=== PATIENT | female | born 1955 | race Caucasian/White ===

== ENCOUNTER → 2017-01-17 | Outpatient (CLI) | payer MEDICARE, OTHER ==
--- NOTE | 2017-01-20 13:34 | RAD ---
EXAM: Bilateral digital screening mammogram with 3D tomosynthesis. HISTORY: 61-year-old female presents for screening mammography. TECHNIQUE: Full field digital craniocaudal and mediolateral oblique 2D and 3D tomosynthesis images of both breasts were obtained. Computer aided detection was applied. COMPARISON: 03/26/2013 and 03/17/2013 FINDINGS: Breast parenchymal density: Level A - Mostly fat. There is nodularity within the 11:00 subareolar aspect of the right breast, increased in conspicuity compared to the prior studies. There is a biopsy clip within the 8:00 position of the right breast. There are decreased calcifications in the region of the biopsy clip compared to the prior studies, consistent with interval biopsy. There are clustered constipations within the anterior left breast, increased in conspicuity compared to the prior study. There is no architectural distortion within either breast. IMPRESSION: BI-RADS Category 0: Needs additional imaging. Further evaluation with spot compression views of nodular within the subareolar aspect of the right breast and magnification views of the mitral calcification is within the anterior left breast is recommended. Sonographic imaging may also be performed if deemed clinically indicated based on additional imaging findings.. The patient will be contacted return for additional imaging. Note is made that dense breast parenchyma limits the sensitivity of mammography. Mammography is a sensitive method for finding small breast cancers, but it does not detect them all and is not a substitute for careful clinical examination. A negative mammogram does not negate a clinically suspicious finding and should not result in delay in biopsying a clinically suspicious abnormality. "Our facility is accredited by the [employer] Mammography [employer]."
== END | disposition home or self-care (01) ==
LOC: MAMMO 12:16
PROVIDERS: ATTEND Family Medicine
DX: Z12.31 Encounter for screening mammogram for malignant neoplasm of breast (principal)
CPT/HCPCS: 77063; G0202; 77067

== ENCOUNTER → 2017-02-05 | Outpatient (CLI) | payer MEDICARE, OTHER ==
--- NOTE | 2017-02-05 15:23 | RAD ---
DATE: February 05, 2017 EXAM: DIGITAL DIAGNOSTIC BILATERAL, BREAST RIGHT HISTORY: Further evaluation of retroareolar nodule of the right breast seen on screening mammogram and calcifications of the left breast seen on screening mammogram. COMPARISON: January 17, 2017 screening mammogram and mammogram dated March 26, 2013 This study was interpreted with the benefit of Computerized Aided Detection (CAD). Right breast Diagnostic mammography FINDINGS: Digital magnification compression views of the retroareolar region of the right breast were performed. There is a small nodule seen superiorly in the 90 degree projection but this nodule is not seen in the CC projection. There is a biopsy clip within the retroareolar region of the right breast and there are microcalcifications present here. The number of calcifications has decreased since 2013 related to biopsy in the interim. Correlation with biopsy results would be helpful. The biopsy result is unknown to this facility at this time. The patient is mentally challenged and is not a good historian. Right breast sonography: High-resolution sonography of the retroareolar region of the right breast was performed. No sonographic abnormality is seen. This confirms the benign nature of the nodular density which again is only seen in one mammographic view most likely representing nodular breast parenchyma. Left breast diagnostic mammography findings: Magnification compression views demonstrate calcifications which are similar in shape and size and are scattered. These appear similar to 2013 and therefore are considered benign. IMPRESSION: Benign finding of both breasts. Recommend routine screening mammography in one year. Correlation with biopsy results of the right breast would be helpful. Biopsy results are unknown to this facility. BI-RADS CATEGORY: 2 BENIGN FINDING RECOMMENDED FOLLOW-UP: 12M 12 MONTH FOLLOW-UP PQRS compliance statement: Patient information was entered into a reminder system with a target due date January 18, 2018 for the next mammogram. Mammography is a sensitive method for finding small breast cancers, but it does not detect them all and is not a substitute for careful clinical examination. A negative mammogram does not negate a clinically suspicious finding and should not result in delay in biopsying a clinically suspicious abnormality. "Our facility is accredited by the [employer] Mammography [employer]."
== END | disposition home or self-care (01) ==
LOC: MAMMO 13:37
PROVIDERS: ATTEND Family Medicine
DX: R92.1 Mammographic calcification found on diagnostic imaging of breast (principal)
CPT/HCPCS: 76641; G0204; 77066